=== PATIENT | female | born 1985 | race American Indian/Alaskan Native ===

== ENCOUNTER 2019-04-24 16:37 | Emergency (ER) | payer OTHER ==
--- NOTE | 2019-04-24 18:33 | XRAY Report ---
Reason: cough Procedure Date: 04/24/2019 Accession Number: [id number] / [id number] Procedure: XR - Chest 2 View X-Ray CPT Code: 32821 Final Report FULL RESULT: EXAM: CHEST RADIOGRAPHY EXAM DATE: 04/24/2019 06:22 PM. CLINICAL HISTORY: Cough. COMPARISON: None. TECHNIQUE: 2 views. FINDINGS: Lungs/Pleura: No focal opacities evident. No pleural effusion. No pneumothorax. Normal volumes. Mediastinum: Heart and mediastinal contours are unremarkable. Other: None. IMPRESSION: Normal 2-view chest radiography. [facility]
[2019-04-24] MEDS ORDERED: predniSONE 20 MG TABLET PO STA (19:26)
[2019-04-24] MEDS ORDERED: HYDROcod/ACETAM 5/325 MG TABLET PO STA (19:26)
--- NOTE | 2019-04-24 19:28 | ED Physician Documentation ---
History of Present Illness - Stated complaint Stated Complaint: FLU LIKE SYMPT - Chief complaint Chief Complaint: Resp - History obtained from History obtained from: Patient - History of Present Illness Timing: Other (33-year-old woman with history of rheumatoid arthritis, has been on both methotrexate and Plaquenil in the past but not on any immunologic's right now. She had a cough for a month which then got better and then recurred about 4 days ago, scant yellow sputum. No shortness of breath. No measured fevers but she does feel hot. Over the last day she is developed severe diffuse joint pains especially in the hips. She is still able to walk. No joint swelling.) Review of Systems Constitutional: reports: Myalgias, Fatigue. denies: Fever, Chills Ears: denies: Ear pain Nose: reports: Rhinorrhea / runny nose Throat: denies: Oral lesions / sores, Sore throat Cardiac: denies: Chest pain / pressure, Palpitations Respiratory: reports: Cough. denies: Dyspnea PD PAST MEDICAL HISTORY - Past Medical History Past Medical History: Yes Endocrine/Autoimmune: Other Other Past Medical History: Pt states RA but no recent flair up. - Past Surgical History Past Surgical History: No - Present Medications Home Medications: Ambulatory Orders Medication Instructions Recorded Confirmed Hydrocodone/Acetaminophen 1 - 2 each PO Q6H PRN #14 tablet 04/24/19 [Hydrocodon-Acetaminophen 5-325] predniSONE [Deltasone] 60 mg PO DAILY 5 Days #15 tablet 04/24/19 - Social History Does the pt smoke?: No Smoking Status: Never smoker Does the pt drink ETOH?: Yes Does the pt have substance abuse?: No - Immunizations Immunizations are current?: Yes - POLST Patient has POLST: No PD ED PE NORMAL - Vitals Vital signs reviewed: Yes - General General: Alert and oriented X 3, No acute distress - HEENT HEENT: PERRL, EOMI, Ears normal, Pharynx benign - Neck Neck: Supple, no meningeal sign, No bony TTP - Cardiac Cardiac: RRR, No murmur - Respiratory Respiratory: No respiratory distress, Clear bilaterally - Abdomen Abdomen: Non tender - Extremities Extremities: Other (No visible swelling or tenderness of any major joints, internal and external rotation of the hips in flexion and extension at the knees is painless.) - Neuro Neuro: Alert and oriented X 3, Normal speech Results - Vitals Vitals: Vital Signs - 24 hr 04/24/19 16:54 Temperature 37.4 C Heart Rate 78 Respiratory 18 Rate Blood Pressure 134/94 H O2 Saturation 100 Oxygen O2 Source Room air - Labs Labs: Laboratory Tests 04/24/19 19:24 Influenza A (Rapid) POSITIVE H Influenza B (Rapid) Negative PD MEDICAL DECISION MAKING - ED course ED course: 33-year-old woman with underlying rheumatoid arthritis albeit not treated with immunologic's presents with a viral syndrome and found to be influenza A positive. She was feeling better after steroids and Vicodin. We discussed the risk-benefit ratio of antivirals and she declined. Departure - Departure Disposition: 01 Home, Self Care Clinical Impression: Influenza A Joint pain Qualifiers: Joint pain location: unspecified Qualified Code(s): M25.50 - Pain in unspecified joint Condition: Good Record reviewed to determine appropriate education?: Yes Instructions: ED Flu Prescriptions: Hydrocodone/Acetaminophen [Hydrocodon-Acetaminophen 5-325] 1 - 2 each PO Q6H PRN #14 tablet PRN Reason: pain predniSONE [Deltasone] 60 mg PO DAILY 5 Days #15 tablet Comments: Return if not better by the end of the weekend, anytime if worse or new symptoms develop. Follow-up with your doctor, next available appointment. Your blood pressure was elevated today on check into the emergency department. This does not mean that you have hypertension, it is a common phenomenon to come to the emergency department and have elevated blood pressure. I recommend that you see your primary care physician within the week to have it rechecked when you are feeling better.
[2019-04-24 19:59] VITALS: BP 118/74
== END 2019-04-24 19:58 | disposition home or self-care (01) ==
LOC: ED 16:37
DX: J10.1 Influenza due to other identified influenza virus with other respiratory manifestations (principal); M25.50 Pain in unspecified joint; R03.0 Elevated blood-pressure reading, without diagnosis of hypertension
CPT/HCPCS: 71046; 87275; 87276; 99284; A9270; J7512

== ENCOUNTER 2021-05-25 20:44 | Emergency (ER) | payer OTHER ==
--- NOTE | 2021-05-25 21:30 | ED Physician Documentation ---
PD HPI ABD PAIN - Stated complaint Stated Complaint: SHARP ABD PX - Chief complaint Chief Complaint: Abd Pain - History obtained from History obtained from: Patient - History of Present Illness Timing - onset: How many hours ago (2-3), Today Timing - duration: Hours Timing - details: Abrupt onset, Waxing and waning Quality: Pain Location: LLQ Radiation: Lower back Improved by: Other (no ameliorating factors) Worsened by: Palpation, Other (BM) Associated symptoms: No: Fever, Nausea, Vomiting, Diarrhea, Constipation Similar symptoms before: Diagnosis (diverticulitis) Recently seen: Not recently seen - Additional information Additional information: c/o LLQ pain x 2-3 hours without specific inciting event. she says this feels very similar to previous episodes of diverticulitis; she says she has had diverticulitis three times, demonstrated on previous CT scans ([place] and treated with antibiotics. Denies fever Review of Systems Constitutional: denies: Fever, Chills, Sweats Cardiac: reports: Reviewed and negative Respiratory: reports: Reviewed and negative GI: reports: Abdominal Pain, Nausea. denies: Vomiting, Constipation, Diarrhea : denies: Dysuria, Frequency PD PAST MEDICAL HISTORY - Past Medical History Past Medical History: Yes Endocrine/Autoimmune: Other GI: Diverticulitis - Past Surgical History Past Surgical History: No - Present Medications Home Medications: Ambulatory Orders Medication Instructions Recorded Confirmed Hydrocodone/Acetaminophen 1 - 2 each PO Q6H PRN #14 tablet 04/24/19 [Hydrocodon-Acetaminophen 5-325] predniSONE [Deltasone] 60 mg PO DAILY 5 Days #15 tablet 04/24/19 Ciprofloxacin HCl [Cipro] 500 mg PO BID #14 tablet 05/25/21 metroNIDAZOLE [Flagyl] 500 mg PO TID 7 Days #21 tablet 05/25/21 - Allergies Allergies/Adverse Reactions: Allergies Allergy/AdvReac Type Severity Reaction Status Date / Time No Known Drug Allergies Allergy Verified 05/25/21 20:56 - Social History Does the pt smoke?: No Smoking Status: Never smoker Does the pt drink ETOH?: Yes Does the pt have substance abuse?: No - Immunizations Immunizations are current?: Yes - POLST Patient has POLST: No PD ED PE NORMAL - Vitals Vital signs reviewed: Yes - General General: Alert and oriented X 3, No acute distress, Well developed/nourished - Cardiac Cardiac: RRR, No murmur - Respiratory Respiratory: No respiratory distress, Clear bilaterally - Abdomen Abdomen: Soft, Non distended, Other (mild TTP LLQ without rebound or guarding) - Back Back: No CVA TTP - Derm Derm: No rash Results - Vitals Vitals: Oxygen O2 Source Room air PD MEDICAL DECISION MAKING - ED course Complexity details: considered differential, d/w patient ED course: discussed options with patient, specifically testing (blood tests and IV contrast CT A/P) vs empiric treatment. She prefers to not undergo testing at this time and go with empiric treatment, as this feels very similar to previous episodes of diverticulitis. She is in NAD, sits up and moves around without any painful distress, and only mild TTP on exam without peritoneal signs. Given cipro and flagyl PO with prescriptions for same transmitted to her pharmacy of choice Departure - Departure Disposition: 01 Home, Self Care Clinical Impression: Abdominal pain Qualifiers: Abdominal location: left lower quadrant Qualified Code(s): R10.32 - Left lower quadrant pain Condition: Good Instructions: ED Diverticulitis Follow-Up: [facility] [Provider Group] Prescriptions: Ciprofloxacin HCl [Cipro] 500 mg PO BID #14 tablet metroNIDAZOLE [Flagyl] 500 mg PO TID 7 Days #21 tablet Comments: As we discussed, because no tests were performed tonight, the diagnosis of diverticulitis is an empiric one (not demonstrated on testing but seems the most likely explanation based on the location of the pain and similarity to your previous episodes of diverticulitis). Antibiotics have been electronically submitted to the [facility] pharmacy in [place]. Follow up with your primary care provider in 3-5 days for reevaluation but return if your symptoms worsen in any way Discharge Date/Time: 05/25/21 22:02
[2021-05-25 21:35] VITALS: BP 143/111
[2021-05-25] MEDS ORDERED: CIPROFLOXACIN 250 MG TABLET PO STA (21:46)
[2021-05-25] MEDS ORDERED: metroNIDAZOLE 250 MG TABLET PO STA (21:47)
== END 2021-05-25 22:02 | disposition home or self-care (01) ==
LOC: ED 20:44
DX: R10.32 Left lower quadrant pain (principal)
CPT/HCPCS: 99282; 99283; A9270; 80053; 83690; 85025